=== PATIENT | male | born 1995 | race Caucasian/White ===

== ENCOUNTER 2017-05-14 14:29 | Emergency (ER) | payer BC ==
[2017-05-14] MEDS ORDERED: Ibuprofen TAB* 800 MG PO ONE (15:37)
[2017-05-14 16:30] LABS: Hematocrit 43 % (42-52); Hemoglobin 14.5 g/dl (14.0-18.0); Mean Corpuscular HGB Conc 34 g/dl (31-36); Mean Corpuscular Hemoglobin 29 pg (27-31); Mean Corpuscular Volume 85 fL (80-94); Mean Platelet Volume 8 um3 (7.4-10.4); Red Blood Count 5.02 10^6/ul (4.0-5.4); Red Cell Distribution Width 13 % (10.5-15); White Blood Count 8.9 10^3/ul (3.5-10.8)
[2017-05-14 16:45] LABS: Albumin 3.9 g/dL (3.2-5.2); BUN/Creatinine Ratio 13.6 (8-20); C Reactive Protein 95.26 mg/L (< 5.00); Calcium 9.4 mg/dL (8.6-10.3); EGFR African American 140.6 (>60); EGFR Non-African American 109.3 (>60); Potassium 3.8 mmol/L (3.5-5.0); Total Bilirubin 0.4 mg/dL (0.2-1.0); Total Protein 7.9 g/dL (6.4-8.9)
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
[2017-05-14] MEDS ORDERED: Magic M W2 Ben/Maal/Nyst/Lido* 240 ML MOUTHWASH (alt formulation) SWISH SWAL SCH (17:00)
[2017-05-14 17:10] LABS: Mono Internal Control QC Line Present
[2017-05-14 17:11] LABS: Manual Entry Verification ROB0080
[2017-05-14 17:29] VITALS: BP 129/77
== END 2017-05-14 18:45 | disposition home or self-care (01) ==
LOC: ED 14:29
DX: K12.1 Other forms of stomatitis (principal); B34.9 Viral infection, unspecified; R53.83 Other fatigue; F12.90 Cannabis use, unspecified, uncomplicated
CPT/HCPCS: 36415; 80053; 83605; 85025; 86140; 86308; 86703; 87502; 87651; 99282; A9270-GY